=== PATIENT | female | born 1985 | race Caucasian/White ===

== ENCOUNTER 2022-02-06 23:43 | Emergency (ER) | payer OTHER | END 2022-02-07 00:50 | disposition left against medical advice (07) | LOC: ER1 23:43 | DX: R52 Pain, unspecified (principal); Z20.822 Contact with and (suspected) exposure to COVID-19; F17.210 Nicotine dependence, cigarettes, uncomplicated; Z88.0 Allergy status to penicillin | CPT/HCPCS: 0240U; 99281 ==